=== PATIENT | female | born 1965 | race Caucasian/White ===

== ENCOUNTER 2016-09-08 13:31 | Emergency (ER) | payer OTHER ==
[2016-09-08] MEDS: ASPIRIN 81 MG CHEWABLE TABLET PO ONE (14:37)
[2016-09-08] MEDS: LORAZEPAM 2 MG/ML VIAL IV ONE (14:37)
[2016-09-08] MEDS: KETOROLAC 30 MG/ML VIAL IVP ONE (14:37)
[2016-09-08 14:41] LABS: BASO % 0.8 % (0-6); EOS % 1.5 % (0-6); GRAN % 45.4 % (47-80); HEMATOCRIT 44.7 % (35.0-47.0); HEMOGLOBIN 14.6 gm/dl (11.6-16.0); LYMPH % 43.1 % (16-45); MEAN CELL VOLUME 91.6 fl (81-97); MEAN CORPUSCULAR HEMOGLOBIN 29.9 pg (27-33); MEAN CORPUSCULAR HGB CONC 32.7 g/dl (32-36); MONO % 9.2 % (0-9); PLATELET COUNT 268 K/uL (130-400); RED BLOOD COUNT 4.88 M/uL (3.80-5.40); RED CELL DISTRIBUTION WIDTH 13.1 % (11.5-14.5); WHITE BLOOD COUNT W/O DIFF 3.9 K/uL (4.2-12.2)
[2016-09-08 14:49] LABS: ALB/GLOB RATIO 1.7 (1.1-1.8); ALBUMIN 4.9 gm/dL (3.5-5.0); ALKALINE PHOSPHATASE 70 U/L (38-126); ALT/SGPT 38 U/L (9-52); ANION GAP 14.1 (7-16); AST/SGOT 27 U/L (14-36); BILIRUBIN,TOTAL 0.55 mg/dL (0.2-1.3); BLOOD UREA NITROGEN 17 mg/dL (7-17); CARBON DIOXIDE 21.9 mmol/L (22-30); CREATINE PHOSPHOKINASE 100 U/L (30-135); CREATININE 0.9 mg/dL (0.52-1.04); EST GLOMERULAR FILTRATION RATE > 60 ml/min; GLUCOSE,RANDOM 86 mg/dL (70-110); TOTAL PROTEIN 7.8 gm/dL (6.3-8.2)
[2016-09-08 15:00] LABS: CKMB 0.4 ug/L (0-6)
[2016-09-08 15:01] LABS: TROPONIN I < 0.012 ng/mL (0.00-0.034)
--- NOTE | 2016-09-08 15:37 | Emergency Department Record ---
History of Present Illness - General Chief Complaint: Chest Pain Stated Complaint: CHEST PAIN Time Seen by Provider: 09/08/16 14:08 Source: Patient, Family Mode of Arrival: Wheelchair Limitations: No limitations - History of Present Illness Initial Comments: pt has had intermittant chest pain for 3 days. it comes every 5 minutes and lasts 15-30 seconds. it is sharp and goes through from her back to her chest and down her left arm. she has never had anything like this before. MD Complaint: Chest pain Onset/Timin -: Days(s) Onset: During rest Pain Location: Left chest Pain Radiation: LUE, Back Severity: Severe Severity scale (1-10): >10 Quality: Sharp Consistency: Intermittent Improves With: Nothing Worsens With: Nothing Treatments Prior to Arrival: None Treatment Prior to Arrival Comment:: [place] - Related Data Home Medications Medication Instructions Recorded Confirmed Last Taken Sertraline HCl [Sertraline HCl] 100 mg PO BID 03/16/15 09/08/16 09/08/16 Buspirone HCl [Buspar] 10 mg PO BID 03/02/16 09/08/16 09/08/16 Trazodone HCl 100 mg PO DAILY 03/02/16 09/08/16 Unknown Ergocalciferol (Vitamin D2) 50,000 unit PO WEEKLY #24 06/13/16 09/08/16 Unknown [Vitamin D2] Gabapentin 300 mg PO TID #90 06/13/16 09/08/16 09/08/16 Alprazolam [Xanax] 0.25 mg PO TID 09/08/16 09/08/16 09/08/16 Etodolac 200 mg PO BID 09/08/16 09/08/16 09/08/16 Meloxicam [Mobic] 7.5 mg PO DAILY 09/08/16 09/08/16 Unknown Previous Rx's Medication Instructions Recorded Ibuprofen [Motrin 600Mg] 600 mg PO Q6H #20 tablet 09/08/16 Allergies Allergy/AdvReac Type Severity Reaction Status Date / Time No Known Drug Allergies Allergy Verified 09/08/16 13:39 Travel Screening - Travel/Exposure Within Last 30 Days Have you traveled within the last 30 days?: No Review of Systems Reviewed: No additional complaints except as noted below Constitutional: Reports: As per HPI. Denies: Chills, Fever, Malaise, Night sweats, Weakness, Weight change Eyes: Reports: As per HPI. Denies: Eye discharge, Eye pain, Photophobia, Vision change ENT: Reports: As per HPI. Denies: Congestion, Dental pain, Ear pain, Epistaxis , Hearing loss, Throat pain Respiratory: Reports: As per HPI. Denies: Cough, Dyspnea, Hemoptysis, Stridor, Wheezes Cardiovascular: Reports: As per HPI. Denies: Arrhythmia, Chest pain, Dyspnea on exertion, Edema, Murmurs, Orthopnea, Palpitations, Paroxysmal nocturnal dyspnea, Rheumatic Fever, Syncope Endocrine: Reports: As per HPI. Denies: Fatigue, Heat or cold intolerance, Polydipsia, Polyuria Gastrointestinal: Reports: As per HPI. Denies: Abdominal pain, Constipation, Diarrhea, Hematemesis, Hematochezia, Melena, Nausea, Vomiting Genitourinary: Reports: As per HPI. Denies: Abnormal menses, Discharge, Dyspareunia, Dysuria, Frequency, Hematuria, Incontinence, Retention, Urgency Musculoskeletal: Reports: As per HPI. Denies: Arthralgia, Back pain, Gout, Joint swelling, Myalgia, Neck pain Skin: Reports: As per HPI. Denies: Bruising, Change in color, Change in hair/ nails, Lesions, Pruritus, Rash Neurological: Reports: As per HPI. Denies: Abnormal gait, Confusion, Headache, Numbness, Paresthesias, Seizure, Tingling, Tremors, Vertigo, Weakness Psychiatric: Reports: As per HPI. Denies: Anxiety, Auditory hallucinations, Depression, Homicidal thoughts, Suicidal thoughts, Visual hallucinations Hematological/Lymphatic: Reports: As per HPI. Denies: Anemia, Blood Clots, Easy bleeding, Easy bruising, Swollen glands Past Medical History - SOCIAL HISTORY Smoking Status: Never smoker Alcohol Use: None Drug Use: None - RESPIRATORY Hx Respiratory Disorders: No - CARDIOVASCULAR Hx Cardio Disorders: No - NEURO Hx Neuro Disorders: No - GI Hx GI Disorders: No - Hx Genitourinary Disorders: No - ENDOCRINE Hx Endocrine Disorders: No - MUSCULOSKELETAL Hx Musculoskeletal Disorders: Yes Hx Arthritis: Yes - PSYCH Hx Psych Problems: Yes Hx Anxiety: Yes Hx Depression: Yes - HEMATOLOGY/ONCOLOGY Hx Hematology/Oncology Disorders: Yes Hx Cancer: Yes (skin cancer removed) Family Medical History Any Significant Family History?: Yes Hx Cancer: Father *Cancer Comment: bladder Hx Heart Disease: Brother/Sister, Grandparents Physical Exam - General General Appearance: Alert, Oriented x3, Cooperative, Moderate distress, Anxious , Other (crying) - Head Head exam: Normal inspection - Eye Eye exam: Normal appearance, PERRL, EOMI Pupils: Normal accommodation - ENT ENT exam: Normal exam, Mucous membranes moist, Normal external ear exam, Normal orophraynx Ear exam: Normal external inspection. negative: External canal tenderness Nasal Exam: Normal inspection. negative: Discharge, Sinus tenderness Mouth exam: Normal external inspection, Tongue normal Teeth exam: Normal inspection. negative: Dental caries Throat exam: Normal inspection. negative: Tonsillar erythema, Tonsillar exudate - Neck Neck exam: Normal inspection, Full ROM. negative: Tenderness - Respiratory Respiratory exam: Normal lung sounds bilaterally, Chest wall tenderness. negative: Respiratory distress - Cardiovascular Cardiovascular Exam: Regular rate, Normal rhythm, Normal heart sounds - GI/Abdominal GI/Abdominal exam: Soft, Normal bowel sounds. negative: Tenderness - Rectal Rectal exam: Deferred - exam: Deferred - Extremities Extremities exam: Normal inspection, Full ROM, Normal capillary refill. negative: Tenderness - Back Back exam: Reports: Normal inspection, Full ROM. Denies: Muscle spasm, Rash noted, Tenderness - Neurological Neurological exam: Alert, CN II-XII intact, Normal gait, Oriented X3 - Psychiatric Psychiatric exam: Normal affect, Normal mood - Skin Skin exam: Dry, Intact, Normal color, Warm Course Vital Signs 09/08/16 09/08/16 13:33 14:40 Temperature 97.9 F Pulse Rate 77 Pulse Rate [ 62 Peer Specialist ] Respiratory 22 18 Rate Blood Pressure 131/100 Blood Pressure 118/95 [Right Arm] Pulse Ox 98 97 - Reevaluation(s) Reevaluation #1: 09/08/16 18:44 pts pain got better with toradol and ativan and was better for several hours. it started to return a little so she was given a dose of dilaudid. 09/08/16 18:50 Reevaluation #2: 09/08/16 18:50 pts pain is reproducible Medical Decision Making - Lab Data Result diagrams: 09/08/16 13:50 09/08/16 13:50 Lab Results 09/08/16 09/08/16 09/08/16 Range/Units 13:50 13:50 13:50 WBC 3.9 L (4.2-12.2) K/uL RBC 4.88 (3.80-5.40) M/uL Hgb 14.6 (11.6-16.0) gm/dl Hct 44.7 (35.0-47.0) % MCV 91.6 (81-97) fl MCH 29.9 (27-33) pg MCHC 32.7 (32-36) g/dl RDW 13.1 (11.5-14.5) % Plt Count 268 (130-400) K/uL MPV 10.0 (7.4-10.4) fl Gran % 45.4 L (47-80) % Lymphocytes % 43.1 (16-45) % Monocytes % 9.2 H (0-9) % Eosinophils % 1.5 (0-6) % Basophils % 0.8 (0-6) % D-Dimer < 0.19 (0-0.59) mg/L FEU Sodium 142 (136-145) mmol/L Potassium 4.2 (3.5-5.1) mmol/L Chloride 106 (98-107) mmol/L Carbon Dioxide 21.9 L (22-30) mmol/L Anion Gap 14.1 (7-16) BUN 17 (7-17) mg/dL Creatinine 0.9 (0.52-1.04) mg/dL Estimated GFR > 60 ml/min Random Glucose 86 (70-110) mg/dL Calcium 9.4 (8.5-10.1) mg/dL Total Bilirubin 0.55 (0.2-1.3) mg/dL AST 27 (14-36) U/L ALT 38 (9-52) U/L Alkaline Phosphatase 70 (38-126) U/L Creatine Kinase 100 (30-135) U/L CK-MB (CK-2) 0.4 (0-6) ug/L Troponin I < 0.012 (0.00-0.034) ng/mL Total Protein 7.8 (6.3-8.2) gm/dL Albumin 4.9 (3.5-5.0) gm/dL Globulin 2.9 (1.4-4.8) gm/dL Albumin/Globulin Ratio 1.7 (1.1-1.8) Disposition Disposition: Discharge Clinical Impression: Chest wall pain, Costochondritis, acute Disposition: Home, Self-Care Condition: (1) Good Instructions: Chest Wall Pain (ED), Costochondritis (ED) Additional Instructions: follow up with family doctor. return sooner if worse. ice and moist heat. Prescriptions: Ibuprofen [Motrin 600Mg] 600 mg PO Q6H #20 tablet Forms: Patient Portal Access
[2016-09-08] MEDS: HYDROMORPHONE HCL 1 MG/ML CPJ IVP ONE (19:01)
[2016-09-08] MEDS: ONDANSETRON HCL IV 4 MG/2 ML VIAL IVP ONE (19:01)
== END 2016-09-08 19:15 | disposition home or self-care (01) ==
LOC: ER 13:31
DX: M94.0 Chondrocostal junction syndrome [Tietze] (principal); R07.89 Other chest pain
CPT/HCPCS: 99284 ×2; 96374; 96375; 82550; 85025; 82553; 84484; 80053; 85379; 71020; 93005; 93010; J1885; J2405; J2060; J1170